=== PATIENT | female | born 1950 | race Caucasian/White ===

== ENCOUNTER 2017-04-19 08:00 | Inpatient (IN) | payer MEDICARE ==
[~2017-04-19] VITALS: Ht 157.5 cm; Wt 105.0 kg
[~2017-04-19 08:00] MED LIST: LEVO.075 PO; LISI-360 PO; OXYC1SOL5 PO
--- NOTE | 2017-04-22 14:47 | MH ---
cc: Juliann DIXON M.D. DATE OF ADMISSION: 04/26/2017 ADMISSION DIAGNOSIS Osteoarthritic degeneration of the right knee. ADMISSION HISTORY AND PHYSICAL This pleasant 66-year-old female is being admitted today for right total knee arthroplasty due to severe painful osteoarthritic degeneration of the right knee. OTHER PAST HISTORY She has had a left total knee in the past. She has a history of hypertension for which she takes lisinopril and for her thyroid problem she takes levothyroxine. She also takes Gertrudis and Omeprazole for GERD. PREVIOUS SURGERIES Include the left total knee arthroplasty. REVIEW OF SYSTEMS Noncontributory. FAMILY HISTORY Noncontributory. SOCIAL HISTORY She does not smoke or drink. ALLERGIES PENICILLIN. PHYSICAL EXAMINATION GENERAL: We find a 66-year-old female, well-developed, well-nourished, oriented x3, complaining of pain in her right knee. VITAL SIGNS: Blood pressure 116/80, pulse 67 and regular, respirations 16, temperature 97.8, pulse oximetry 97% on room air. HEENT: Eyes PERRLA, EOMI. Ears, nose, mouth clear. NECK: Supple. LUNGS: Clear. HEART: Regular rate. ABDOMEN: Soft. Positive bowel sounds, nontender. EXTREMITIES: Reveal right knee to be tender with crepitance on range of motion. She is neurovascularly intact to her toes. IMPRESSION AT THIS TIME Severe painful osteoarthritic degeneration, right knee. PLAN Admission for right total knee arthroplasty today. The patient given a prescription for postoperative pain and anticoagulation control in the office, understands the use of Hibiclens scrub and Bactroban preoperatively and plans on going to a rehab center after her surgical stay in the hospital. MD LIBBY Franco/SABA /2:12 PM /2:25 PM
[2017-04-26] MEDS ORDERED: CHLORHEXIDINE GLUCONATE 4% SOLN 120 ML BTL TOPICAL SCH (06:30)
[2017-04-26] MEDS ORDERED: SODIUM CHLORID 0.9% 500 ML IV PRN (06:30)
[2017-04-26] MEDS ORDERED: POVIDONE IODINE 5% (ANTISEPSIS KIT) 4 APPLICATIONS EACH NARE PRN (06:30)
[2017-04-26] MEDS ORDERED: VANCOMYCIN 1000 MG/NS 250 ML (for <70 kg) IV SCH ×2 (06:30)
[2017-04-26] MEDS ORDERED: CHLORHEXIDINE GLUCONATE 2 % 1 PACK (2 CLOTHS) TOPICAL PRN (06:30)
[2017-04-26] MEDS ORDERED: DEXAMETHASONE SOD PHOS 20 MG/5 ML VIAL IV ONE (06:30)
[2017-04-26] MEDS ORDERED: LACTATED RINGER'S 1000 ML IV PRN (06:30)
[2017-04-26] MEDS ORDERED: INSULIN HUMAN REGULAR 1,000 UNITS/10 ML VIAL SQ PRN (06:30)
[2017-04-26] MEDS ORDERED: CLINDAMYCIN 900 MG/NS 100 ML IV SCH ×2 (06:30)
[2017-04-26] MEDS ORDERED: METOPROLOL TARTRATE 25 MG TAB PO PRN (06:30)
[2017-04-26] MEDS ORDERED: CHOL20005 PO (06:44)
[2017-04-26] MEDS ORDERED: OMEP20TA PO (06:44)
[2017-04-26] MEDS ORDERED: LEVO.075 PO (06:44)
[2017-04-26] MEDS ORDERED: FEXO15TA PO (06:44)
[2017-04-26] MEDS ORDERED: LISI10TA3 PO (06:44)
[2017-04-26] MEDS ORDERED: GENTAMICIN SULFATE 80 MG/2 ML VIAL ONE (06:54)
[2017-04-26 07:04] LABS: AUTOMATED NEUTROPHIL # 6.2 TH/MM3 (1.8-7.7); BASOPHIL # 0.1 TH/MM3 (0-0.2); BASOPHIL % 0.7 % (0.0-2.0); EOSINOPHIL # 0.3 TH/MM3 (0-0.4); EOSINOPHIL % 2.9 % (0.0-4.0); HEMATOCRIT 43.3 % (35.0-46.0); HEMO FLAGS DIFF FINAL; LYMPH % 26.7 % (9.0-44.0); LYMPHOCYTE # 2.6 TH/MM3 (1.0-4.8); MEAN CELL VOLUME 86.4 FL (80.0-100.0); MEAN CORPUSCULAR HEMOGLOBIN 28.8 PG (27.0-34.0); MEAN CORPUSCULAR HGB CONC 33.3 % (32.0-36.0); MONO % 6.6 % (0.0-8.0); NEUT % 63.1 % (16.0-70.0); PLATELET COUNT 299 TH/MM3 (150-450); RED BLOOD COUNT 5.01 MIL/MM3 (4.00-5.30); RED CELL DISTRIBUTION WIDTH 13.2 % (11.6-17.2); WHITE BLOOD COUNT 9.9 TH/MM3 (4.0-11.0)
[2017-04-26] MEDS ORDERED: ACETAMINOPHEN 1000 MG/100 ML 100 ML IV ONE (07:38)
[2017-04-26] MEDS ORDERED: FAMOTIDINE 20 MG/2 ML VIAL ONE (07:39)
[2017-04-26] MEDS ORDERED: BUPIVACAINE LIPOSO PF 1.3% INJ 20 ML in SODIUM CHLORIDE 0.9% INJ 100 ML P-ARTICULR SCH (08:00)
[2017-04-26] MEDS ORDERED: TRANEXAMIC ACID INJ 1,056 MG in SODIUM CHLORIDE 0.9% INJ 100 ML IV SCH ×3 (08:00→11:00)
[2017-04-26] MEDS ORDERED: diphenhydrAMINE HCL 50 MG/ML VIAL IV PRN (10:15)
[2017-04-26] MEDS ORDERED: SODIUM CHLORIDE 0.9% FLUSH 5 ML FLUSH IVF PRN (10:15)
[2017-04-26] MEDS ORDERED: Post-op Orders (for Pharmacy) MISC XX ONE (10:15)
[2017-04-26] MEDS ORDERED: TEMAZEPAM 15 MG CAP PO PRN (10:15)
[2017-04-26] MEDS ORDERED: TRANEXAMIC ACID INJ 0 MG in SODIUM CHLORIDE 0.9% INJ 100 ML IV SCH (10:15)
[2017-04-26] MEDS ORDERED: NALOXONE HCL 0.4 MG/ML AMP IV PRN (10:15)
[2017-04-26] MEDS ORDERED: ACETAMINOPHEN 325 MG TAB PO PRN (10:15)
--- NOTE | 2017-04-26 10:15 | HHI.FF ---
Face to Face Verification Diagnosis: (1) Status post total right knee replacement Physical Therapy Gait training Knee: Protocol: Right, Full weight bearing Canvas Knee Splint: When in bed & 2 pillows btw thighs Nursing RN: 3 days/week x 2 weeks Nursing: Dressing changes Dressing Changes: Daily dressing change, Paper tape I have seen patient Krissy Leal on 04/26/17. My clinical findings support the need for the requested home health care services because: Limited ability to care for self High risk of falls I certify that my clinical findings support that this patient is homebound because: Unsteady gait/balance Juliann Joel MD Apr 26, 2017 10:15
[2017-04-26] MEDS ORDERED: ADJUSTABLE COMM1 MIS (10:17)
[2017-04-26] MEDS ORDERED: CPMMACHINE (10:17)
[2017-04-26] MEDS ORDERED: WALKER WHEELS/F1 MIS (10:17)
[2017-04-26] MEDS ORDERED: DO NOT ADM ANY ANTICOAGULANT DRUGS PRN (10:28)
--- NOTE | 2017-04-26 10:40 | HHI.PR ---
Immediate Post Op Note Procedure Date: Apr 26, 2017 Pre Op Diagnosis: severe painful Osteoarthritic degeneration of the right knee. Post Op Diagnosis: Osteoarthritic degeneration of the right knee. Surgeon: Beau Joel MD Cuff Turner Machine Operator(s): Jerrica LOPEZ Procedure: Right total knee arthroplasty Findings: Osteoarthritic degeneration of the right knee. Complications: none Specimen(s) removed: none Estimated blood loss: 100 cc Anesthesia: General Drains: None IVF Tourniquet time (min at mmHg) 86 mins at 300mgHg Patient to: PACU Patient Condition: Good Implant/Devices: SEE IMPLANT LOG (if applicable) Date/Time of Procedure: SEE SURGICAL CARE RECORD Jerrica Martinez Apr 26, 2017 10:40
[2017-04-26] MEDS ORDERED: *morphine SULFATE 8 MG/ML PERIprocedure ONLY ONE ×2 (10:53→11:08)
[2017-04-26] MEDS: LACTATED RINGER'S 1000 ML INJ 1,000 ML IV SCH ×2 (11:00→22:39)
--- NOTE | 2017-04-26 11:32 | RADRPT ---
EXAM DATE/TIME: 04/26/2017 10:35 [facility] COMPARISON: No previous studies available for comparison. INDICATIONS : Post op right total knee. MEDICAL HISTORY : None. SURGICAL HISTORY : None. ENCOUNTER: Initial ACUITY: 1 day PAIN SCORE: 5/10 LOCATION: Right Knee FINDINGS: Two view examination of the right knee demonstrates total knee arthroplasty. All 3 components are pro perly positioned. No fracture. CONCLUSION: Appropriate postoperative appearance of the right knee status post total arthroplasty. Willard Howell MD on April 26, 2017 at 11:24 Board Certified Radiologist. This report was verified electronically.
--- NOTE | 2017-04-26 11:54 | EKG ---
Date Performed: 04/26/2017 Time Performed: 06:43:16 PTAGE: 66 years EKG: Sinus rhythm LEFT AXIS DEVIATION POSSIBLE LATERAL MYOCARDIAL INFARCTION , PROBABLY OLD POOR R WAVE PROGRESSION AB NORMAL ECG PREVIOUS TRACING : 04/11/2015 11.48 No significant change from previous tracing noted DOCTOR: True Monsalve Interpretating Date/Time 04/26/2017 11:53:14
[2017-04-26] MEDS ORDERED: ePHEDrine/NS 25 MG/5 ML SYR IV ONE (12:00)
[2017-04-26] MEDS ORDERED: MORPHINE SULFATE 4 MG/ML INJ IV ONE (12:00)
[2017-04-26] MEDS ORDERED: CLINDAMYCIN 150 MG CAP PO SCH (12:00)
[2017-04-26] MEDS ORDERED: DEXAMETHASONE SOD PHOS 4 MG/ML VIAL IV ONE (12:00)
[2017-04-26] MEDS ORDERED: VECURONIUM BROMIDE 20 MG VIAL IV ONE (12:00)
[2017-04-26] MEDS ORDERED: LACTATED RINGER'S 1000 ML INJ 2,000 ML IV ONE (12:00)
[2017-04-26] MEDS: CLINDAMYCIN INJ 900 MG in SODIUM CHLORIDE 0.9% INJ 100 ML IV SCH ×2 (12:00→20:19)
[2017-04-26] MEDS ORDERED: PROPOFOL 200 MG/20 ML AMP IV ONE (12:00)
[2017-04-26] MEDS ORDERED: MIDAZOLAM HCL 2 MG/2 ML VIAL IV ONE (12:00)
[2017-04-26] MEDS ORDERED: ONDANSETRON HCL 4 MG/2 ML VIAL IV PUSH ONE (12:00)
[2017-04-26] MEDS ORDERED: PHENYLEPH/NS 1000 MCG/10 ML SYR IV ONE (12:00)
[2017-04-26] MEDS ORDERED: NEOSTIGMINE 3 MG/3 ML SYR IV ONE (12:00)
[2017-04-26] MEDS ORDERED: ceFAZolin INJ 1,000 MG VIAL IV ONE (12:00)
[2017-04-26] MEDS ORDERED: BUPIVACAINE LIPOSOME PF 1.3% 20 ML VIAL ONE (12:02)
[2017-04-26] MEDS: MORPHINE SULFATE 4 MG/ML INJ IV PRN ×3 (16:47→23:29)
[2017-04-26 17:00] VITALS: BP 120/72; PULSE 82; RESP 16; TEMP 97; O2SAT 94
--- NOTE | 2017-04-26 18:13 | PD.CONS ---
HPI Service [facility] Hospitalists Consult Requested By ortho Reason for Consult medical management Primary Care Physician Prabhakar Crandall M.D. Diagnoses: History of Present Illness 66 years old female with history of chronic right knee osteoarthritis severe pain admitted for right total knee arthroplasty, hospitalist service consulted to see patient for medical management, patient seen and examined in her room she was awake alert oriented, pleasant, in no acute distress, right lower extremity in mobilizer, patient stated she had a history of hypertension and hypothyroidism, she had hysterectomy in the past and left total knee arthroplasty. Currently she denied any chest pain short of breath fever chills abdominal pain dysuria urgency frequency Review of Systems All systems reviewed and was positive for what is mentioned in history of present illness otherwise negative Past Family Social History Allergies: Coded Allergies: penicillin G (Unverified Allergy, Severe, joint pain, 04/26/17) joint pain Past Medical History Hypertension, hypothyroidism, Past Surgical History Hysterectomy Family History Father had diabetes mellitus Social History Denied tobacco alcohol or illicit drug abuse Physical Exam Vital Signs Vital Signs Date Time Temp Pulse Resp B/P (MAP) Pulse Ox O2 Delivery O2 Flow Rate FiO2 04/26/17 17:00 97.5 77 16 125/77 (93) 95 Room Air 04/26/17 16:52 15 04/26/17 16:00 78 16 120/70 (87) 94 Room Air 04/26/17 15:00 79 16 118/69 (85) 93 Room Air 04/26/17 14:00 80 16 116/68 (84) 92 Room Air 04/26/17 13:00 82 16 119/67 (84) 98 Nasal Cannula 3 04/26/17 12:00 88 15 121/69 (86) 97 Nasal Cannula 3 04/26/17 11:30 97.7 84 15 134/70 (91) 95 Nasal Cannula 3 04/26/17 11:15 86 15 131/68 (89) 94 Nasal Cannula 3 04/26/17 11:13 15 04/26/17 11:00 87 15 128/69 (88) 94 Nasal Cannula 3 04/26/17 10:58 15 04/26/17 10:45 86 14 133/67 (89) 93 Nasal Cannula 3 04/26/17 10:30 90 14 130/70 (90) 98 Simple Mask 7 04/26/17 10:25 97.8 89 10 139/72 (94) 97 Simple Mask 7 04/26/17 06:45 97.8 89 16 134/84 (101) 96 Physical Exam GENERAL: This is a well-nourished, well-developed patient, in no apparent distress. SKIN: No rashes, warm and dry HEAD: Atraumatic. Normocephalic. EYES: Pupils equal round and reactive. Extraocular motions intact. No scleral icterus. ENT: Nose without bleeding, or drainage, Airway patent. NECK: Trachea midline. Supple CARDIOVASCULAR: Regular rate and rhythm without murmurs, gallops, or rubs. RESPIRATORY: Fair air entry bilaterally. No wheezes, rales, or rhonchi. GASTROINTESTINAL: Abdomen soft, non-tender, nondistended. Positive bowel sounds MUSCULOSKELETAL: Extremities without clubbing, cyanosis, or edema. Pedal pulses appreciated, right lower extremity immobilizer able to wiggle toes NEUROLOGICAL: Awake and alert. Moves all extremity. Normal speech.no focal neurological deficit Laboratory Laboratory Tests Test 04/26/17 06:50 White Blood Count 9.9 Red Blood Count 5.01 Hemoglobin 14.4 Hematocrit 43.3 Mean Corpuscular Volume 86.4 Mean Corpuscular Hemoglobin 28.8 Mean Corpuscular Hemoglobin Concent 33.3 Red Cell Distribution Width 13.2 Platelet Count 299 Mean Platelet Volume 8.3 Neutrophils (%) (Auto) 63.1 Lymphocytes (%) (Auto) 26.7 Monocytes (%) (Auto) 6.6 Eosinophils (%) (Auto) 2.9 Basophils (%) (Auto) 0.7 Neutrophils # (Auto) 6.2 Lymphocytes # (Auto) 2.6 Monocytes # (Auto) 0.6 Eosinophils # (Auto) 0.3 Basophils # (Auto) 0.1 CBC Comment DIFF FINAL Differential Comment Result Diagram: 04/26/17 0650 Imaging Last Impressions Knee X-Ray 04/26/17 1009 Signed Impressions: Service Date/Time: Wednesday, April 26, 2017 10:35 - CONCLUSION: Appropriate postoperative appearance of the right knee status post total arthroplasty. Willard Howell MD Assessment and Plan Assessment and Plan 66 years old female admitted for Severe right knee osteoarthritis status us right total knee arthroplasty Hypertension Hypothyroidism DVT prophylaxis Plan and recommendation: Check BMP and renal function Agree with continuing lisinopril, I will add Vasotec as needed after assuring good renal function Agree with continuing Synthroid, TSH to be checked and followed up as an outpatient Patient will start on Eliquis for DVT prophylaxis per ortho Pain management with [place] and morphine sulfate Will follow patient with you thank you for this consultation Discussed Condition With Patient Bert Meeks MD Apr 26, 2017 18:13
[2017-04-26] MEDS: ONDANSETRON HCL 4 MG/2 ML VIAL IVP PRN (20:18)
[2017-04-26] MEDS: SODIUM CHLORIDE 0.9% FLUSH 5 ML FLUSH IVF SCH (20:32)
[2017-04-26 20:57] VITALS: BP 102/72; PULSE 82; RESP 18; TEMP 96.7; O2SAT 93
[2017-04-26 23:15] VITALS: BP 106/83; PULSE 83; RESP 18; TEMP 96.7; O2SAT 93
[2017-04-27] VITALS (7 sets, daily range): BP systolic 96–141; BP diastolic 57–89; PULSE 95–104; RESP 16–18; TEMP 97.2–98.7; O2SAT 92–97
[2017-04-27] MEDS: CLINDAMYCIN INJ 900 MG in SODIUM CHLORIDE 0.9% INJ 100 ML IV SCH (04:32)
[2017-04-27] MEDS: MORPHINE SULFATE 4 MG/ML INJ IV PRN ×2 (04:37→10:03)
[2017-04-27] MEDS: ONDANSETRON HCL 4 MG/2 ML VIAL IVP PRN ×3 (05:12→20:19)
[2017-04-27] MEDS: LEVOTHYROXINE SODIUM 75 MCG TAB PO SCH (06:27)
[2017-04-27 08:35] LABS: HEMATOCRIT 41.6 % (35.0-46.0); REVIEW FLAG FINAL
[2017-04-27] MEDS: CHOLECALCIFEROL (VIT D3) 1000 UNIT TAB PO SCH (09:00)
[2017-04-27] MEDS: LISINOPRIL 10 MG TAB PO SCH (09:00)
[2017-04-27] MEDS: PANTOPRAZOLE SOD 20 MG DELAYED RELEASE TAB PO SCH (09:00)
[2017-04-27] MEDS: LORATADINE 10 MG TAB PO SCH (09:00)
[2017-04-27] MEDS: SODIUM CHLORIDE 0.9% FLUSH 5 ML FLUSH IVF SCH ×2 (09:00→20:19)
[2017-04-27 09:05] LABS: BICARBONATE 21.5 MEQ/L (21.0-32.0)
[2017-04-27 09:13] LABS: POTASSIUM 4.7 MEQ/L (3.5-5.1)
[2017-04-27] MEDS ORDERED: APIXABAN 2.5 MG TABLET PO SCH (10:00)
--- NOTE | 2017-04-27 11:31 | PD.ORT.PN ---
Subjective Subjective Remarks Pt painful and nauseous at moment. Objective Vitals Vital Signs Date Time Temp Pulse Resp B/P (MAP) Pulse Ox O2 Delivery O2 Flow Rate FiO2 04/27/17 08:50 21 04/27/17 08:00 98.7 99 16 140/82 (101) 94 04/27/17 05:00 97.8 100 18 96/57 (70) 93 04/27/17 04:42 18 04/26/17 23:15 96.7 83 18 106/83 (91) 93 04/26/17 20:57 96.7 82 18 102/72 (82) 93 04/26/17 20:40 21 04/26/17 17:00 97.0 82 16 120/72 (88) 94 04/26/17 17:00 97.5 77 16 125/77 (93) 95 Room Air 04/26/17 16:00 78 16 120/70 (87) 94 Room Air 04/26/17 15:00 79 16 118/69 (85) 93 Room Air 04/26/17 14:00 80 16 116/68 (84) 92 Room Air 04/26/17 13:00 82 16 119/67 (84) 98 Nasal Cannula 3 04/26/17 12:00 88 15 121/69 (86) 97 Nasal Cannula 3 04/26/17 11:30 97.7 84 15 134/70 (91) 95 Nasal Cannula 3 I/O 04/26/17 04/26/17 04/26/17 04/27/17 04/27/17 04/27/17 07:00 15:00 23:00 07:00 15:00 23:00 Intake Total 1316.56 ml 810 ml 360 ml Output Total 3100 ml Balance -1783.44 ml 810 ml 360 ml Intake Oral 360 ml 360 ml IV Total 1316.56 ml 450 ml Output Estimated Blood Loss 100 ml Other 3000 ml # Voids 2 4 # Bowel Movements 0 0 Result Diagram: 04/27/1751904/27/17 05 Objective Remarks Sitting up in chair. NV intact. Dressing dry and intact. Assessment & Plan Ortho Post Op Day #: 1 Problem List: Assessment and Plan OOB, PT, Lovenox instead of Eliquis today. Juliann Joel MD Apr 27, 2017 11:31
[2017-04-27] MEDS ORDERED: ENOXAPARIN SODIUM 30 MG/0.3 ML SYRINGE SQ ONE ×2 (13:30→23:00)
[2017-04-27] MEDS: ENOXAPARIN SODIUM 30 MG/0.3 ML SYRINGE SQ SCH (13:38)
--- NOTE | 2017-04-27 15:47 | HHI.PR ---
Objective Vitals Vital Signs Date Time Temp Pulse Resp B/P (MAP) Pulse Ox O2 Delivery O2 Flow Rate FiO2 04/27/17 12:00 97.2 95 16 141/89 (106) 94 04/27/17 08:50 21 04/27/17 08:00 98.7 99 16 140/82 (101) 94 04/27/17 05:00 97.8 100 18 96/57 (70) 93 04/27/17 04:42 18 04/26/17 23:15 96.7 83 18 106/83 (91) 93 04/26/17 20:57 96.7 82 18 102/72 (82) 93 04/26/17 20:40 21 04/26/17 17:00 97.0 82 16 120/72 (88) 94 04/26/17 17:00 97.5 77 16 125/77 (93) 95 Room Air 04/26/17 16:00 78 16 120/70 (87) 94 Room Air I/O 04/26/17 04/26/17 04/26/17 04/27/17 04/27/17 04/27/17 07:00 15:00 23:00 07:00 15:00 23:00 Intake Total 1316.56 ml 810 ml 360 ml Output Total 3100 ml Balance -1783.44 ml 810 ml 360 ml Intake Oral 360 ml 360 ml IV Total 1316.56 ml 450 ml Output Estimated Blood Loss 100 ml Other 3000 ml # Voids 2 4 # Bowel Movements 0 0 Result Diagram: 04/27/17 0520 04/27/17 0520 Bert Meeks MD Apr 27, 2017 15:47
[2017-04-27] MEDS: ACETAMINOPHEN/HYDROcodone 325 MG/7.5 MG TAB PO PRN ×2 (15:56→20:11)
[2017-04-27] MEDS: MULTIVITAMINS/MINERALS THERAPEUTIC TAB PO SCH (20:10)
[2017-04-27] MEDS: DOCUSATE SODIUM 100 MG CAP PO SCH (20:10)
--- NOTE | 2017-04-27 20:34 | HHI.PR ---
Subjective Remarks Resting comfortably in bed No event overnight Denied chest and or short of breath No fever or chills Objective Vitals Vital Signs Date Time Temp Pulse Resp B/P (MAP) Pulse Ox O2 Delivery O2 Flow Rate FiO2 04/27/17 20:32 92 04/27/17 19:49 98.6 104 18 124/72 (89) 97 04/27/17 16:00 97.8 96 16 133/86 (102) 95 04/27/17 12:00 97.2 95 16 141/89 (106) 94 04/27/17 08:50 21 04/27/17 08:00 98.7 99 16 140/82 (101) 94 04/27/17 05:00 97.8 100 18 96/57 (70) 93 04/27/17 04:42 18 04/26/17 23:15 96.7 83 18 106/83 (91) 93 04/26/17 20:57 96.7 82 18 102/72 (82) 93 04/26/17 20:40 21 I/O 04/26/17 04/26/17 04/26/17 04/27/17 04/27/17 04/27/17 07:00 15:00 23:00 07:00 15:00 23:00 Intake Total 1316.56 ml 810 ml 360 ml 600 ml Output Total 3100 ml Balance -1783.44 ml 810 ml 360 ml 600 ml Intake Oral 360 ml 360 ml 600 ml IV Total 1316.56 ml 450 ml Output Estimated Blood Loss 100 ml Other 3000 ml # Voids 2 4 4 # Bowel Movements 0 0 0 Result Diagram: 04/27/1751904/27/17519 Objective Remarks GENERAL: This is a well-nourished, well-developed patient, in no apparent distress. SKIN: No rashes, warm and dry HEAD: Atraumatic. Normocephalic. EYES: Pupils equal round and reactive. Extraocular motions intact. No scleral icterus. ENT: Nose without bleeding, or drainage, Airway patent. NECK: Trachea midline. Supple CARDIOVASCULAR: Regular rate and rhythm without murmurs, gallops, or rubs. RESPIRATORY: Fair air entry bilaterally. No wheezes, rales, or rhonchi. GASTROINTESTINAL: Abdomen soft, non-tender, nondistended. Positive bowel sounds MUSCULOSKELETAL: Extremities without clubbing, cyanosis, or edema. Pedal pulses appreciated, right lower extremity immobilizer able to wiggle toes NEUROLOGICAL: Awake and alert. Moves all extremity. Normal speech.no focal neurological deficit A/P Assessment and Plan 66 years old female admitted for Severe right knee osteoarthritis status us right total knee arthroplasty Hypertension Hypothyroidism DVT prophylaxis Plan and recommendation: Review BMP and renal function>> WNL Continue lisinopril, I will add Vasotec as needed after assuring good renal function Continue Synthroid, TSH to be checked and followed up as an outpatient Patient on Eliquis for DVT prophylaxis per ortho Pain management with [place] and morphine sulfate Bert Meeks MD Apr 27, 2017 20:34
--- NOTE | 2017-04-27 21:45 | MP ---
cc: Juliann JOEL DATE OF SURGERY 04/26/17 PREOPERATIVE DIAGNOSIS Osteoarthritic degeneration right knee. POSTOPERATIVE DIAGNOSIS Osteoarthritic degeneration right knee. SURGERY PERFORMED Right total knee arthroplasty using Consensus components size 3 femur, 1 tibia and 12 insert and a size 1 patella two batches of DePuy cement and using the Bespoke protocol. SURGEON Dr. Joel KEY ATTENDANT JOHN Yeh ANESTHESIA General intubation and abductor block. PROCEDURE FOLLOWS After successful induction of anesthesia, the patient is placed on the operating room table in the supine position. The knee is prepped and draped in the usual manner. A tourniquet is inflated at the upper thigh and set to 300 mmHg pressure after exsanguination of the lower extremity. A longitudinal incision is made extending from 3 inches proximal to the superior pole of the patella, across the patella in longitudinal fashion, and down past the insertion of the tibial tubercle into the proximal tibia. The incision is carried down through subcutaneous tissue along the medial aspect of the patella and retinaculum, down through the capsule to expose the knee joint. The patella and patellar tendon are freed up enough to allow the patella to be inverted and retracted off the lateral side of the knee joint. The knee joint is left exposed. Small osteophytes are removed. All soft tissue is removed to allow proper position of the femoral and tibial cutting jig guide. The first femoral jig is then inserted along the distal end of the femur after first measuring to decide whether this is a small, medium, or large component. The notch is then drilled and the tibial cutting guide inserted into the femoral cutting guide, along with the ankle brace to allow for proper measurement of the tibial cutting surface that needed to be resected. Pins are inserted into the tibial cutting jig and femoral cutting jig to hold them in place. An oscillating saw is then used to resect the surface of the tibia. The surface of the tibia is then completely removed using sharp and blunt dissection. The anterior and posterior cuts of the femur are then made as well using an oscillating saw through the cutting guide. All guides are then removed and the varus/valgus angulation cutting guide applied to the femur for proper measurement of the proper amount of valgus. The anterior cutting guide for the femur is then inserted at the anterior femoral cuts made. Next, the first block trial is inserted into the femur to allow for proper condyle drill holes to be made which are then made followed by removal of the bone between the condyles using an oscillating saw as well as the bone removed at the most posterior surface of the condyle. After this, this guide is removed and the chamfer cuts made using the chamfer cutting guide from both anterior and posterior. Next, the femoral trial is then inserted, the tibial surface reflected anterior to expose the tibial surface and a tibial stem guide is inserted after first measuring for a standard, standard plus, large, or large plus surface to be used. After the stem is impacted the trial tibial surface is applied followed by the trial meniscal components. After full range of motion is found with the appropriate length meniscal components varying the patella is prepared by resecting the posterior aspect of the patella using an oscillating saw, inserting a trial. The trial is then removed and the cruciate cutting guide applied using the bur to cut the cruciate cuts. After cruciate cuts are made all trials are removed. The wound is irrigated copiously with antibiotic solution and Water Pik and the actual components inserted into place using aforementioned components using Bespoke protocol. After the cement has hardened and the components are found to have full range of motion with no instability, the tourniquet is deflated, total tourniquet time being 45 minutes at 300 mmHg pressure. The wound again is irrigated copiously with antibiotic solution, meticulous hemostasis achieved. Meticulous hemostasis achieved, 120 cc of Exparel inserted around the knee joint for extra pain control. No drain utilized. The deep fascia was approximated with running #2 quill, subcutaneous tissue approximated using interrupted running 2-0 and 3-0 Monocryl suture and Steri-Strips, sterile dressing and knee immobilizer. Estimated blood loss 100 cc. Sponge, suture count correct. The patient tolerated the procedure well and left the operating room in satisfactory condition. JOHN Yeh, was present during the entire procedure to include patient positioning and the procedure. The medical necessity of a nurse practitioner store assistant was indicated in this case due to the surgical complexity the case itself. During the surgical case the rn surgical who was working the back table while my surgical training specialist, JOHN, was directly assisting me. ESTIMATED BLOOD LOSS: 100 cc. COUNTS: Sponge and suture counts were correct. COMPONENTS: The components used were Consensus components size 3 femur, 1 tibia and 12 insert and a size 1 patella two batches of DePuy cement and using the Bespoke protocol. J. MD LIBBY Huston/KIRILL /10:04 AM /9:12 PM
[2017-04-27] MEDS: LACTATED RINGER'S 1000 ML INJ 1,000 ML IV SCH (23:39)
[2017-04-28] MEDS: ACETAMINOPHEN/HYDROcodone 325 MG/7.5 MG TAB PO PRN ×6 (01:23→22:47)
[2017-04-28] MEDS: ENOXAPARIN SODIUM 30 MG/0.3 ML SYRINGE SQ SCH (01:27)
[2017-04-28] MEDS: ONDANSETRON HCL 4 MG/2 ML VIAL IVP PRN ×2 (02:52→10:34)
[2017-04-28 04:14] VITALS: BP 123/77; PULSE 104; RESP 18; TEMP 98.4; O2SAT 95
[2017-04-28] MEDS: LEVOTHYROXINE SODIUM 75 MCG TAB PO SCH (05:56)
[2017-04-28 06:57] LABS: HEMATOCRIT 37.2 % (35.0-46.0); REVIEW FLAG FINAL
[2017-04-28 08:00] VITALS: BP 147/82; PULSE 109; RESP 18; TEMP 96; O2SAT 95
[2017-04-28] MEDS: LISINOPRIL 10 MG TAB PO SCH (09:00)
[2017-04-28] MEDS: SODIUM CHLORIDE 0.9% FLUSH 5 ML FLUSH IVF SCH ×2 (09:00→20:40)
[2017-04-28] MEDS: CHOLECALCIFEROL (VIT D3) 1000 UNIT TAB PO SCH (10:12)
[2017-04-28] MEDS: MULTIVITAMINS/MINERALS THERAPEUTIC TAB PO SCH ×2 (10:13→20:40)
[2017-04-28] MEDS: DOCUSATE SODIUM 100 MG CAP PO SCH ×2 (10:13→20:40)
[2017-04-28] MEDS: LORATADINE 10 MG TAB PO SCH (10:13)
[2017-04-28] MEDS: APIXABAN 2.5 MG TABLET PO SCH ×2 (10:13→20:40)
[2017-04-28] MEDS: PANTOPRAZOLE SOD 20 MG DELAYED RELEASE TAB PO SCH (10:14)
[2017-04-28] MEDS ORDERED: BACITRACIN OINT 0.9 GM PKT TOP PRN (10:15)
[2017-04-28 12:00] VITALS: BP_SYST 123; BP_SYST 142; BP_DIAS 69; BP_DIAS 76; PULSE 108; RESP 18; TEMP 96; TEMP 98.8; O2SAT 94; O2SAT 97
[2017-04-28] MEDS: POLYETHYLENE GLYCOL 17 GM PKG PO SCH ×2 (14:11→20:40)
--- NOTE | 2017-04-28 14:59 | PD.ORT.PN ---
Subjective Subjective Remarks Patient much more comfortable today with no nausea. Objective Vitals Vital Signs Date Time Temp Pulse Resp B/P (MAP) Pulse Ox O2 Delivery O2 Flow Rate FiO2 04/28/17 08:00 96.0 109 18 147/82 (103) 95 04/28/17 04:14 98.4 104 18 123/77 (92) 95 04/27/17 23:00 97.5 100 18 138/75 (96) 95 04/27/17 20:32 92 04/27/17 19:49 98.6 104 18 124/72 (89) 97 04/27/17 16:00 97.8 96 16 133/86 (102) 95 I/O 04/27/17 04/27/17 04/27/17 04/28/17 04/28/17 04/28/17 07:00 15:00 23:00 07:00 15:00 23:00 Intake Total 360 ml 600 ml 360 ml 480 ml Balance 360 ml 600 ml 360 ml 480 ml Intake Oral 360 ml 600 ml 360 ml 480 ml # Voids 4 4 5 8 # Bowel Movements 0 0 0 0 Result Diagram: 04/28/17 0555 04/27/17 0520 Objective Remarks Sitting up in chair. NV intact. Dressing dry and intact. Assessment & Plan Ortho Post Op Day #: 2 Problem List: Assessment and Plan Continue PT, daily wound care, out of bed, [facility] facility tomorrow. Juliann Joel MD Apr 28, 2017 14:59
[2017-04-28] MEDS ORDERED: HYDR-3580 PO (15:03)
--- NOTE | 2017-04-28 15:05 | HHI.DS ---
Discharge Summary Admission Date Apr 26, 2017 at 05:58 Discharge Date: Apr 29, 2017 Admitting Diagnosis Osteoarthritic degeneration right knee Diagnosis: (1) Status post total right knee replacement ICD Codes: Z96.651 - Presence of right artificial knee joint Brief History This is a 67 year old female patient CBC/BMP: 04/28/17 0555 04/27/17 0520 Significant Findings Laboratory Tests Test 04/26/17 06:50 04/27/17 05:20 04/28/17 05:55 Sodium Level 134 MEQ/L (136-145) Estimat Glomerular Filtration Rate 78 ML/MIN (>89) PE at Discharge Sitting up in chair. NV intact. Dressing dry and intact. Hospital Course Patient underwent a right total knee arthroplasty on day of admission. She received a course of prophylactic IV antibiotics and within 23 hours started on anticoagulation therapy. She had a bout of nausea the first day but was fine the second day. She tolerated food and fluid well thereafter remained afebrile vital signs stable and continued with physical therapy and daily wound care. She continued to improve and was discharged on the third postoperative day [facility] with instructions for continuation of care and follow-up appointment in the office. Pt Condition on Discharge: Good Discharge Disposition: Discharge to SNF Discharge Instructions Diet Instructions: As Tolerated, No Restrictions Activities You Can Perform: Weight Bearing as Yesi, Shower Only-No Bath Activities to Avoid: Bathing, Driving Juliann Joel MD Apr 28, 2017 15:05
[2017-04-28 16:00] VITALS: BP 117/78; PULSE 107; RESP 16; TEMP 97.4; O2SAT 98
[2017-04-28 19:00] VITALS: BP 140/80; PULSE 111; RESP 17; TEMP 95.9; O2SAT 95
[2017-04-29] VITALS: BP 108/69; PULSE 100; RESP 17; TEMP 97.3; O2SAT 93
[2017-04-29] MEDS: LACTATED RINGER'S 1000 ML INJ 1,000 ML IV SCH ×2 (00:39→13:09)
[2017-04-29] MEDS: ACETAMINOPHEN/HYDROcodone 325 MG/7.5 MG TAB PO PRN ×3 (04:19→14:09)
[2017-04-29] MEDS: LEVOTHYROXINE SODIUM 75 MCG TAB PO SCH (04:40)
[2017-04-29 08:00] VITALS: BP 110/74; PULSE 106; RESP 16; TEMP 97.4; O2SAT 92
[2017-04-29] MEDS: DOCUSATE SODIUM 100 MG CAP PO SCH (08:47)
[2017-04-29] MEDS: MULTIVITAMINS/MINERALS THERAPEUTIC TAB PO SCH (08:47)
[2017-04-29] MEDS: LISINOPRIL 10 MG TAB PO SCH (08:47)
[2017-04-29] MEDS: CHOLECALCIFEROL (VIT D3) 1000 UNIT TAB PO SCH (08:48)
[2017-04-29] MEDS: LORATADINE 10 MG TAB PO SCH (08:48)
[2017-04-29] MEDS: PANTOPRAZOLE SOD 20 MG DELAYED RELEASE TAB PO SCH (08:48)
[2017-04-29] MEDS: APIXABAN 2.5 MG TABLET PO SCH (08:48)
[2017-04-29] MEDS: SODIUM CHLORIDE 0.9% FLUSH 5 ML FLUSH IVF SCH (08:49)
[2017-04-29] MEDS ORDERED: APIX2.5T PO (09:47)
[2017-04-29 12:00] VITALS: BP 113/80; PULSE 96; RESP 16; TEMP 97; O2SAT 94
[2017-04-29] MEDS: POLYETHYLENE GLYCOL 17 GM PKG PO SCH (14:09)
== END 2017-04-29 18:04 | DRG 470 ==
LOC: HSDI 04-26 05:58 → N06A 04-26 17:22
PROVIDERS: ADMIT Surgery; ATTEND Surgery
PROC: 3E0T3CZ (ICD-10-PCS; 2017-04-26)
PROC: 0SRC0J9 Replacement of Right Knee Joint with Synthetic Substitute, Cemented, Open Approach (ICD-10-PCS; principal; 2017-04-26 07:43)
DX: M17.11 Unilateral primary osteoarthritis, right knee (principal); I10 Essential (primary) hypertension; E03.9 Hypothyroidism, unspecified; K21.9 Gastro-esophageal reflux disease without esophagitis; Z96.652 Presence of left artificial knee joint; Z90.710 Acquired absence of both cervix and uterus
CPT/HCPCS: 73560; 80048; 85014; 85018; 85025; 86850; 86900; 86901; 93005; 94150; C1776; C9290; J0131; J0690; J1100; J1580; J1650; J2250; J2270; J2370; J2405; J2710; J3010; J3370; J7050; J7120; L1830

== ENCOUNTER 2017-10-05 06:49 | Day surgery (SDC) | payer MEDICARE ==
[~2017-10-05] VITALS: Ht 157.5 cm; Wt 105.7 kg
[~2017-10-05 06:49] MED LIST changes: +ADJUSTABLE COMM1 MIS; +APIX2.5T PO; +CPMMACHINE; +D200CAP PO; +FEXO15TA PO; +HYDR-3580 PO; -LISI-360 PO; +LISI10TA3 PO; +OMEP20TA93 PO; -OXYC1SOL5 PO; +WALKER WHEELS/F1 MIS
[2017-10-05] MEDS ORDERED: IOHEXOL 350 MG/ML 50 ML BTL (for Cath Lab) OTHER ONE (06:50)
[2017-10-05] MEDS ORDERED: NS 1000P @30 MLS/HR (KVO) IV SCH (07:00)
[2017-10-05 07:29] VITALS: BP 141/94; PULSE 88; RESP 18; TEMP 97.7; O2SAT 95
[2017-10-05 07:44] LABS: BASOPHIL # 0.1 TH/MM3 (0-0.2); BASOPHIL % 0.7 % (0.0-2.0); EOSINOPHIL # 0.3 TH/MM3 (0-0.4); EOSINOPHIL % 3.1 % (0.0-4.0); HEMATOCRIT 42.9 % (35.0-46.0); HEMOGLOBIN 14.6 GM/DL (11.6-15.3); LYMPH % 28.6 % (9.0-44.0); LYMPHOCYTE # 2.8 TH/MM3 (1.0-4.8); MEAN CELL VOLUME 84.1 FL (80.0-100.0); MEAN CORPUSCULAR HEMOGLOBIN 28.7 PG (27.0-34.0); MEAN CORPUSCULAR HGB CONC 34.1 % (32.0-36.0); MEAN PLATELET VOLUME 8.3 FL (7.0-11.0); MONO % 5.7 % (0.0-8.0); MONOCYTE # 0.6 TH/MM3 (0-0.9); NEUT % 61.9 % (16.0-70.0); PLATELET COUNT 353 TH/MM3 (150-450); RED BLOOD COUNT 5.11 MIL/MM3 (4.00-5.30); RED CELL DISTRIBUTION WIDTH 13.6 % (11.6-17.2); WHITE BLOOD COUNT 9.7 TH/MM3 (4.0-11.0)
[2017-10-05] MEDS ORDERED: CHOL10008 PO (07:49)
[2017-10-05 07:55] LABS: INTERNATIONAL NORMALIZED RATIO 0.9 RATIO; PROTHROMBIN TIME - PATIENT 9.5 SEC (9.8-11.6)
[2017-10-05 08:00] LABS: BICARBONATE 27.5 MEQ/L (21.0-32.0); CALCIUM 9.3 MG/DL (8.5-10.1); CREATININE 0.76 MG/DL (0.50-1.00)
[2017-10-05] MEDS ORDERED: HEPARIN-NS/PF FLUSH BAG 2,000 ML IV FLUSH ONE (10:27)
[2017-10-05] MEDS ORDERED: HEPARIN SODIUM - IV 10,000 UNITS/10 ML VIAL ONE (10:28)
[2017-10-05] MEDS ORDERED: VERAPAMIL HCL 5 MG/2 ML VIAL ONE (10:28)
[2017-10-05] MEDS ORDERED: NITROGLYCERIN INJ 5 ML ONE (10:28)
[2017-10-05] MEDS ORDERED: MIDAZOLAM HCL 2 MG/2 ML VIAL ONE (10:28)
--- NOTE | 2017-10-05 11:20 | CATHPROC ---
[facility] HIS Report Study Information Study Number Admission Scheduled Start Study Start [id number] Oct 05 2017 6:49AM 10/05/2017 Oct 05 2017 10:22AM Abie Service Cardiac Catheterization Admit Source Facility Department Other [facility] - Photographic Laboratory Supervisor Physician and Clinical Staff Initial Javan Juárez Engineering Model Maker Dameon Owens RN Engineering Model Maker Lalito Barbour,MAT Recorder Negin Boo,RT(R) Scrub Winter Mendoza ,RT(R) Procedures Performed Procedure Location (Site) Vessel Name Coronary Angiograms LCA Left Coronary Coronary Angiograms RCA Right Coronary L Heart Cath Wire insertion Radial (right) Radial Art. Equipment Time Track Mechanic Description Size Mfg Part Number Used/Scraped TRANSDUCER, TRUWAVE [id number] 10:32 ROMERO DEE * Used W/STOCKCOCK *[id number] *[id number] 10:32 HemoSonics PACK, CCL CUSTOM * Used *[id number] 10:32 HemoSonics SUPPORT, ARTERIAL ADULT 32545 *[id number] Used [id number] 11:01 MEDTRONIC JL 3.5 DXTERITY CATHETER FR 5 Used *[id number] BAND, RADIAL COMPRESSION TR [id number] 11:06 Inspire MEDICAL 24CM Used SHORT 24 *[id number] 10:32 Inspire MEDICAL WIRE, EXCHANGE 260CM 3MMJ 260CM Used *[id number] 10:32 NAMIC MANIFOLD, 4 PORT * Used *[id number] 10:32 NYCOMED OMNIPAQUE, 350 MG, 150ML 150ML [id number] Used [id number] 10:32 OLGUIN MEDICAL BLANKET,WARM AIR CCL * Used *[id number] SHEATH, FR6 TRANSRADIAL [id number] 10:32 Ambow Education FR 6 Used SLENDER 10CM *[id number] History: Current Medications Medication Dosage/Unit Route Frequency Last Date/Time Taken LISINOPRIL Gertrudis Synthroid History: Allergies Allergy Reaction penicillin G joint pain History: Risk Factors Family History of Hypertension Dyslipidemia Previous MT Previous Heart Failure Premature CAD Yes Yes Yes No No Prior Valve Prior PCI Prior CABG Surgery No No No Cerebrovascular Peripheral Artery Chronic Lung On Dialysis Diabetes Disease Disease Disease No No No No No History: Symptoms/Diagnosis Selection Items SOB History: Stress Tests Stress or Imaging Studies Performed Yes Standard Exercise Stress Test No Stress Echo No Stress Test SPECT Stress Test SPECT Result Stress Test SPECT Ischemia Risk/Extent Yes Positive Intermediate Stress Test CMR No Cardiac CTA Coronary Calcium Score No No History: Other Disease Selection Items Gerd HTN History: Other Current Smoker No Labs Hgb (g/dl) Hct (%) WBC (l/cumm) Platelets (thousands) 11.60-17.00 35.00-51.00 4.00-11.00 150.00-450.00 14.6 42.9 9.7 353 Glucose (mg/dl) BUN (mg/dl) Creatinine (mg/dl) BUN:Creatinine (1:x) 74.00-106.00 7.00-18.00 0.50-1.30 10.00-20.00 96 21 0.7 30 Na (meq/l) K (meq/l) 136.00-145.00 3.50-5.10 139 3.9 INR (PTT:PT) 0.90-1.10 0.9 CPK-MB (ng/ML) 0.50-3.60 Not Drawn Medication Medication Total Dose (Bolus/Oral) Medication Total Dosage/Unit 1% XYLOCAINE 20 mL FENTANYL 25 mcg RADIAL COCKTAIL 5 mL (Bolus) VERSED 0.5 mg Medications (Bolus/Oral) Medication Time Given Dosage/Unit Administered By Reason VERSED 10/05/2017 10:50:10 AM 0.5 mg Dameon Owens 0.5 mg VERSED given in lab by Dameon Owens RN in Left Antecubital via Peripheral IV. Ordered by Javan Francis FENTANYL 10/05/2017 10:50:20 AM 25 mcg Dameon Owens 25 mcg FENTANYL given in lab by Dameon Owens RN in Left Antecubital via Peripheral IV. Ordered by Javan Tyler 1% XYLOCAINE 10/05/2017 10:50:29 AM 20 mL Javan Tyler 20 mL 1% XYLOCAINE given in lab by Javan Tyler in Right Radial via Subcutaneous. RADIAL COCKTAIL 10/05/2017 10:52:27 AM 5 mL (Bolus) Javan Tyler 5 mL (Bolus) RADIAL COCKTAIL given in lab by Javan Tyler in Right Radial via Radial. Using [S olution Name]. Reason: Ntg 200mcg Verapamil 2.5mg Heparin 4000U. Initial Case Assessment Cardiovascular HR Rhythm NIBP Chest Pain 82 SR 114/68 0 Skin color Skin Normal Warm Dry Circulatory - Right Pulses Dorsalis Pedis Femoral Radial 1 1 2 Scale (0,1,2,3,4,d) Scale (0,1,2,3,4,d) Neurological State Oriented to time-place- Alert Moves all extremities person Respiration - General Respiration Rate SpO2 (%) (B/min) 12 99 Chronological Log Time Study Chronological Log 10:20:09 Patient arrived via Bed. 10:22:13 Patient Name, D.O.B, / Armband Verified By R.N. 10:22:13 Consent signed by the physician and the patient and verified by the Photographic Laboratory Supervisor staff. 10:22:14 Pre-op and post- op instructions given; patient acknowledges understanding of instructions . 10:22:15 Verbal Stimulation=2 Physical Stimulation=2 Airway=2 Respiration=2 TOTAL=8. (0=absent, 1=l imited, 2=present) 10:22:17 Presedation assessment performed by Photographic Laboratory Supervisor RN. 10:22:19 Allens test performed on the right radial and ulnar artery. 10:22:23 Patient has been NPO for More than 6Hrs. 10:22:23 Skin Breakdown- none per pt 10:22:24 Patient Warmer Placed on the Table. 10:22:26 Chika Prominences Protected 10:22:27 A # 20 IV was noted in the Antecubital (left). Grade = 0 10:22:37 History and physical on the chart or being dictated. Assessment: Initial Case, HR=82 BPM, Rhythm=SR, SHAL=416/68 mmhg, Chest Pain=0, Color=Normal, Skin = Warm, Dry 10:22:38 Right Pulses: Titus Ped=1, Femoral=1, Radial=2 Neurological: State=Alert, Ox3, GARCIA Respiration: Resp=12 B/min, SpO2=99 % Vitals capture started with the following parameters, Patient=Adult, Interval=5 min, Initial P iefjhxy=259 mmHg, 10:30:32 Deflation Rate=5 mmHg, Cuff placed on Left Arm 10:30:40 Reference ECG taken 10:31:13 HR=82 bpm, AQPY=069/68 mmhg, SpO2=98.0 %, Resp=13 B/min 10:36:00 HR=80 bpm, DTSC=657/93 mmhg, SpO2=98.0 %, Resp=16 B/min 10:38:29 Bilateral groins and right radial prepped with 2% chlorhexidine, and draped after a 3 minut e waiting time. 10:41:03 HR=83 bpm, TWZG=694/97 mmhg, SpO2=99 %, Resp=18 B/min 10:43:49 MD paged 10:45:40 MD arrived. 10:46:06 HR=80 bpm, PBDI=765/93 mmhg, SpO2=97 %, Resp=18 B/min 10:47:36 Pressure channel 1 zeroed. Time Out. Correct patient, correct procedure, correct physician, power injector not loaded with contrast with surgical 10:49:17 team present. Time Out Concurred by MD and individual staff in procedure. 10:50:09 Case Start 10:50:10 0.5 mg VERSED given in lab by Dameon Owens, RN in Left Antecubital via Peripheral IV. Ord ered by Javan Tyler. 25 mcg FENTANYL given in lab by Dameon Owens, MAT in Left Antecubital via Peripheral IV. Order ed by Javan Tyler 10:50:20 G. 10:50:29 20 mL 1% XYLOCAINE given in lab by Javan Tyler in Right Radial via Subcutaneous. 10:51:05 HR=83 bpm, IVXG=178/90 mmhg, SpO2=97 %, Resp=19 B/min 10:51:37 Access site was Right Radial Artery. A SHEATH, FR6 TRANSRADIAL SLENDER 10CM FR 6 was advanced into the Radial (right) using the Perc utaneous 10:52:12 technique. 5 mL (Bolus) RADIAL COCKTAIL given in lab by Javan Tyler in Right Radial via Radial. Us ing [Solution Name]. 10:52:27 Reason: Ntg 200mcg Verapamil 2.5mg Heparin 4000U. A JR 4.0 INFINITI CATHETER FR 5 was advanced over a wire. OMNIPAQUE, 350 MG, 150ML 150ML was us ed for 10:53:14 injections. Recorded Pressure: LV, HR=92, Condition=Condition 1 10:55:31 (Left Ventricle) LV 104/3/6 Recorded Pressure: LV, Ao, HR=91, Condition=Condition 1 10:55:41 (Left Ventricle) LV 103/3/5, (Aorta) Ao 93/66/78 10:56:10 HR=90 bpm, NDSE=889/72 mmhg, SpO2=93 %, Resp=18 B/min 10:57:42 A WIRE, EXCHANGE 260CM 3MMJ 260CM was inserted via Radial (right). 10:58:58 Wire removed 10:59:46 The RCA was injected and visualized at various angles. OMNIPAQUE, 350 MG, 150ML 150ML used . After removing the current catheter a JL 3.5 DXTERITY CATHETER FR 5 was advanced over a WIRE, E XCHANGE 260CM 11:00:22 3MMJ 260CM. 11:00:26 NIBP STAT measurement started. 11:00:55 HR=83 bpm, KLUL=981/82 mmhg, SpO2=93 %, Resp=19 B/min 11:02:59 The LCA was injected and visualized at various angles. OMNIPAQUE, 350 MG, 150ML 150ML used . Recorded Pressure: Ao, HR=78, Condition=Condition 1 11:03:38 (Aorta) Ao 106/67/84 11:06:04 HR=81 bpm, CTHN=979/85 mmhg, SpO2=92 %, Resp=17 B/min 11:06:08 Catheter was removed 11:06:50 Case End Radial Compression Device Used. 9 mLs of air placed in BAND, RADIAL COMPRESSION TR SHORT 24 24C M. Affected 11:08:27 hand 98 % O2 saturation. 11:11:07 HG=466 bpm, VXSV=192/91 mmhg, XiB9=285.0 %, Resp=19 B/min 11:15:43 Vitals capture stopped. 11:15:50 No case complications noted. 11:15:53 Cine recording checked. 11:15:57 Bedside Report will be given. 11:16:04 A Left Heart Cath was performed. 11:16:06 [facility] End Study - Contrast Media Used In Study Contrast Total Opened (mL) Total Used (mL) Total Wasted (mL) Omnipaque 30 30 0 End Study - Maximum Contrast Load Max Contrast Load (mL) 754.9 End Study - Radiation Exposure Fluoro Time (minutes) 4.7 End Study - Sheaths Sheaths Pulled By Sheath Hold Time (min) Winter Mendoza End Study - Patient Disposition Complications Transferred To Telemetry Bed
--- NOTE | 2017-10-05 12:02 | MA ---
cc: Javan Tyler DO 10/05/2017 PROCEDURE: Left heart catheterization, coronary angiogram, moderate sedation, 16 minutes. PREPROCEDURE DIAGNOSIS: Abnormal stress test, preoperative cardiovascular evaluation. POSTPROCEDURE DIAGNOSIS: Mild coronary artery disease, tortuous vessels secondary to hypertension. MEDICATIONS: Versed 0.5 mg, fentanyl 25 mcg, verapamil 2.5 mg, nitroglycerin 200 mcg, heparin 4000 units. CONTRAST USED: 30 mL. FLUOROSCOPY: 4.7 minutes. MODERATE SEDATION: 16 minutes. ESTIMATED BLOOD LOSS: 10 mL. PROCEDURAL SUMMARY: Krissy eLal is a pleasant 67-year-old female who sees my partner, Dr. Carbajal, in the office and was planning to undergo bariatric surgery. She underwent stress testing and there was a concern for anterior ischemia and so she was recommended cardiac catheterization. Risks, benefits, and alternatives were explained to her and she consented as such. She was brought to the lab and prepped in the usual sterile fashion. Right radial artery was accessed using a modified Seldinger technique and placement of a 5/6-American Slender sheath. This was easily aspirated and flushed. A JR4 was advanced over a J-wire to the ascending aorta and across the aortic valve for measurement of left ventricular pressure. This was pulled back across the aortic valve, showing no significant gradient of aortic stenosis. JR4 was exchanged for a JL3.5, which was used for selective angiography of the left coronary artery system. JL3.5 was removed over a J-wire. Radial band was placed over the arteriotomy site for hemostasis. Patient left the director of cath lab cardiovascularly stable. FINDINGS: 1. LEFT MAIN: Normal size vessel with adequate reflux. It trifurcates into an LAD, ramus, and circumflex. 2. LEFT ANTERIOR DESCENDING: Normal size vessel with overall tortuosity throughout the mid to distal portion with diffuse 20% disease. Distally, the vessel tapers down to the apex. 3. RAMUS: Large vessel with tortuosity throughout. It supplies the true apex over the LAD. No significant disease. 4. LEFT CIRCUMFLEX: Normal size vessel with 10% disease in the proximal portion. It gives off 2 obtuse marginals with the first one being large and no significant disease and the second one being overall small. Overall, it has significant tortuosity throughout. 5. RIGHT CORONARY ARTERY: Normal size vessel with no significant disease. Distally, it supples a PDA and a PLB with no significant disease. LVEDP 5. IMPRESSIONS: 1. Mild coronary artery disease by cardiac catheterization. 2. Preoperative cardiovascular risk assessment. 3. Tortuous coronary vessels secondary to hypertension. RECOMMENDATIONS: 1. Ms. Leal appears to have mild coronary artery disease as above and she will be recommended continued medical management. 2. 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 3. She will follow up with Dr. Carbajal for final risk assessment before surgery. Thank you for allowing me to see Krissy Leal. If there are any questions, please do not hesitate to call. Javan Tyler DO VGP/TI , 11:20 AM , 12:00 PM
--- NOTE | 2017-10-05 21:58 | EKG ---
Date Performed: 10/05/2017 Time Performed: 07:38:10 PTAGE: 67 years EKG: Sinus rhythm . Possible left anterior fascicular block Borderline ECG PREVIOUS TRACING : 04/26/2017 06.43 Since the prior tracing, there has been no significant sanchez DOCTOR: Aubrie Penn Interpretating Date/Time 10/05/2017 21:56:41
== END 2017-10-05 14:07 | disposition home or self-care (01) ==
LOC: HDIC 06:49 → HDOC 06:49
PROVIDERS: ATTEND Nuclear Medicine Nuclear Cardiology
DX: I25.10 Atherosclerotic heart disease of native coronary artery without angina pectoris (principal); I10 Essential (primary) hypertension; R06.02 Shortness of breath; K21.9 Gastro-esophageal reflux disease without esophagitis; E78.5 Hyperlipidemia, unspecified; Z01.818 Encounter for other preprocedural examination
CPT/HCPCS: 80048; 85025; 85610; 85730; 93005; 93458; 99152; C1769; C1893; J1644; J2250; J3010; Q9967

== ENCOUNTER 2017-11-08 05:16 | Inpatient (IN) | payer MEDICARE ==
[~2017-11-08] VITALS: Ht 160 cm; Wt 101.6 kg
[~2017-11-08 05:16] MED LIST changes: -ADJUSTABLE COMM1 MIS; -APIX2.5T PO; +CHOL10008 PO; -CPMMACHINE; -D200CAP PO; -HYDR-3580 PO; -WALKER WHEELS/F1 MIS
[2017-11-08] MEDS ORDERED: SODIUM CHLORID 0.9% 500 ML IV PRN (05:45)
[2017-11-08] MEDS ORDERED: METOPROLOL TARTRATE 25 MG TAB PO PRN (05:45)
[2017-11-08] MEDS ORDERED: SCOPOLAMINE 1.5 MG PATCH T-DERMAL SCH (05:45)
[2017-11-08] MEDS ORDERED: ONDANSETRON HCL 4 MG/2 ML VIAL IV PUSH SCH (05:45)
[2017-11-08] MEDS ORDERED: metroNIDAZOLE 500 MG INJ 100 ML IV SCH (05:45)
[2017-11-08] MEDS ORDERED: LACTATED RINGER'S 1000 ML IV PRN (05:45)
[2017-11-08] MEDS ORDERED: CHLORHEXIDINE GLUCONATE 2 % 1 PACK (2 CLOTHS) TOPICAL PRN (05:45)
[2017-11-08] MEDS ORDERED: VANCOMYCIN 1,000 MG/NS 250ML (for <70 kg) IV SCH ×2 (05:45)
[2017-11-08] MEDS ORDERED: APREPITANT 40 MG CAP PO SCH (05:45)
[2017-11-08] MEDS ORDERED: ACETAMINOPHEN 1000 MG/100 ML 100 ML IV SCH (05:45)
[2017-11-08] MEDS ORDERED: POVIDONE IODINE 5% (ANTISEPSIS KIT) 4 APPLICATIONS EACH NARE PRN (05:45)
[2017-11-08] MEDS ORDERED: HYDROmorphone HCL PF 2 MG/ML VIAL ONE (06:33)
[2017-11-08] MEDS ORDERED: DEXMEDETOMIDINE HCL 200 MCG/2 ML VIAL ONE (06:33)
[2017-11-08] MEDS ORDERED: KETAMINE HCL 500 MG/5 ML VIAL ONE (06:34)
[2017-11-08] MEDS ORDERED: MIDAZOLAM HCL 2 MG/2 ML VIAL ONE (06:34)
[2017-11-08] MEDS ORDERED: LIDOCAINE HCL 2% 20 ML VIAL ONE (06:36)
[2017-11-08] MEDS ORDERED: BUPIVACAINE/EPINEPHRINE 0.25% PF 10 ML VIAL ONE (07:08)
[2017-11-08] MEDS ORDERED: METHYLENE BLUE 10 MG/ML VIAL ONE (07:08)
--- NOTE | 2017-11-08 07:19 | HHI.PR ---
Immediate Post Op Note Procedure Date: Nov 08, 2017 Pre Op Diagnosis: morbid obesity bmi 40 HTN, Hypercholestremia, gerd Post Op Diagnosis: same Surgeon: Omar Varela MD Turbine Operator(s): dina Procedure: lap sleeve over 36 f visigi bougi Findings: no leak Complications: none Specimen(s) removed: none Estimated blood loss: 5cc Anesthesia: General Drains: None Patient to: PACU Patient Condition: Good Omar Varela MD Nov 08, 2017 07:19
[2017-11-08] MEDS ORDERED: HYDROmorphone HCL PCA 6 MG/30 ML IV SCH (07:30)
[2017-11-08] MEDS ORDERED: diphenhydrAMINE HCL 50 MG/ML VIAL IV PUSH PRN (07:30)
[2017-11-08] MEDS ORDERED: diphenhydrAMINE HCL ELIXIR 12.5 MG/5 ML CUP PO PRN (07:30)
[2017-11-08] MEDS ORDERED: NALOXONE HCL 0.4 MG/ML AMP IV PUSH PRN (07:30)
[2017-11-08] MEDS ORDERED: SODIUM CHLORIDE 0.9% FLUSH 10 ML FLUSH IV FLUSH PRN (07:30)
[2017-11-08] MEDS ORDERED: ENALAPRILAT 1.25 MG/ML VIAL IV PUSH PRN (07:30)
[2017-11-08] MEDS ORDERED: ACETAMINOPHEN 325MG/HYDROcodone 7.5MG/15ML UDC PO PRN (07:30)
[2017-11-08] MEDS ORDERED: Post-op Orders (for Pharmacy) OTHER ONE (07:30)
[2017-11-08] MEDS ORDERED: BUPIVACAINE/EPINEPHRINE 0.25% 50 ML VIAL ONE (07:31)
[2017-11-08] MEDS: SODIUM CHLORIDE 0.9% FLUSH 10 ML FLUSH IV FLUSH SCH ×2 (09:00→21:41)
[2017-11-08] MEDS ORDERED: DO NOT ADM ANY ANTICOAGULANT DRUGS PRN (09:04)
[2017-11-08] MEDS: D5-1/2 NS + KCL 20 MEQ INJ 1,000 ML IV SCH ×2 (09:40→17:03)
[2017-11-08] MEDS: METOCLOPRAMIDE HCL 10 MG/2 ML VIAL IV PUSH SCH ×3 (09:48→21:41)
[2017-11-08] MEDS: PANTOPRAZOLE SOD 40 MG DELAYED RELEASE TAB PO SCH (10:00)
[2017-11-08] MEDS: ONDANSETRON HCL 4 MG/2 ML VIAL IV PUSH PRN (11:58)
[2017-11-08] MEDS ORDERED: ROCURONIUM INJ 50 MG/5 ML SYRINGE IV PUSH ONE (12:00)
[2017-11-08] MEDS ORDERED: ePHEDrine/NS 25 MG/5 ML SYRINGE IV ONE (12:00)
[2017-11-08] MEDS ORDERED: NEOSTIGMINE 5 MG/5 ML SYRINGE IV PUSH ONE (12:00)
[2017-11-08] MEDS: ACETAMINOPHEN 1000 MG/100 ML 100 ML IV SCH ×3 (12:00→23:18)
[2017-11-08] MEDS ORDERED: PROPOFOL 200 MG/20 ML AMP IV ONE (12:00)
[2017-11-08] MEDS ORDERED: LIDOCAINE HCL 1% PF 5 ML SYRINGE OTHER ONE (12:00)
[2017-11-08] MEDS ORDERED: SODIUM CHLOR 0.9% 250 ML INJ 500 ML IV ONE (12:00)
[2017-11-08] MEDS ORDERED: DEXAMETHASONE SOD PHOS 4 MG/ML VIAL IV ONE (12:00)
[2017-11-08] MEDS ORDERED: PHENYLEPH/NS 1000 MCG/10 ML SYR IV ONE (12:00)
[2017-11-08] MEDS: ENOXAPARIN SODIUM 40 MG/0.4 ML SYRINGE SQ SCH (13:15)
[2017-11-08 16:00] VITALS: BP 124/64; PULSE 62; RESP 18; TEMP 97.2; O2SAT 97
--- NOTE | 2017-11-08 17:05 | MP ---
cc: Omar Varela MD DATE OF OPERATION: 11/08/2017 DATE OF PROCEDURE: 11/08/2017 PREOPERATIVE DIAGNOSES: 1. Morbid obesity, body mass index of 40 mg. 2. Hypertension, hypercholesteremia, reflux. POSTOPERATIVE DIAGNOSES: 1. Morbid obesity, body mass index of 40 mg. 2. Hypertension, hypercholesteremia, reflux. PROCEDURE PERFORMED: Laparoscopic sleeve gastrectomy over a 36 ViSiGI bougie. SURGEON: Dr. Omar Varela STOKER ERECTOR AND SERVICER: Tasha. ANESTHESIA: GETA. IV FLUIDS: See anesthesia sheet. ESTIMATED BLOOD LOSS: 5 mL. DRAINS: None. COMPLICATIONS: None. WOUND CLASSIFICATION: Clean/contaminated. FINDINGS: No leak with methylene blue. INDICATIONS: The patient is a 67-year-old female who presents with morbid obesity, multiple attempts at weight loss without success. The patient with a BMI of over 40 and comorbidities of hypertension, hypercholesterolemia and reflux. Decision was made for a laparoscopic sleeve gastrectomy. DETAILS OF PROCEDURE: The patient was taken to the operating suite, placed in supine position. She was prepped and draped in the usual sterile fashion after induction of general endotracheal anesthesia. Brief timeout was done stating the correct patient, procedure, surgical site and we were all in agreement with this. Attention was first directed to 15 cm distal to the xiphoid that the midline. Local anesthetic injected. Stab/omar incision was made with an 11 blade. A 5 mm Optiview scope was entered into the abdomen safely. A pneumoperitoneum to 15 mm pneumoperitoneum. Under direct visualization, no evidence of injury. Several accessory ports were placed after the patient was placed in reverse Trendelenburg and airplaned to the left. A right upper quadrant 5 mm port was placed for liver retraction. A right lower quadrant 15 mm port was placed, a 5 mm left upper quadrant and a 5 mm left lower quadrant port were also placed. The stomach was identified. The vasculature on the greater curve of the stomach was using harmonic scalpel, 5 cm proximal pylorus, carried all the way to the angle of His. Angle of His was taken down bluntly. Posterior ligaments and attachments were sharply . The 36-Ugandan ViSiGi bougie was advanced and placed to suction. Division of the stomach was done over this with a calibration device. This was done 5 cm proximal to the pylorus toward the angle of His, removing approximately 80% of the stomach. This was done with the Endo-BECKI stapler, initial black load, followed by green load and gold loads. All loads were reinforced with SeamGuard. This was done at distal 2 cm left of the angle incisura and 1 cm left of the GE junction staple line. The staple line was then tested with methylene blue. Two syringes of 60 mL each were instilled without evidence of leaking. The posterior ligamentous adhesions were somewhat intact to the medial portion. Next, Evicel was placed around the suture line. Small bleeding point distal staple line where 5 mm clips were placed on the distal staple line. The excised stomach was removed through the right lower quadrant 15 mm port site. The fascia was closed using an endo-stitch of 2-0 Vicryl and suture passer. Pneumoperitoneum was removed. All ports were removed, 4-0 Monocryl used for subcuticular suture at all port sites. The patient tolerated the procedure well. There was no intraoperative complications. All lap and instrument counts were correct at the end of the procedure. The patient was extubated and taken in stable to the PACU. MD SHAGGY Hernandez/DELMAR , 04:41 PM , 05:04 PM
[2017-11-08] MEDS: VANCOMYCIN INJ 1,000 MG in SODIUM CHLOR 0.9% 250 ML INJ 250 ML IV SCH (18:37)
[2017-11-08 20:00] VITALS: BP 128/64; PULSE 62; RESP 16; TEMP 96.2; O2SAT 98
[2017-11-08] MEDS: PCA - TOTAL MG DILAUDID DELIVERED PER SHIFT OTHER SCH (22:00)
[2017-11-08 22:20] VITALS: O2SAT 98
[2017-11-09] VITALS: BP 141/74; PULSE 63; RESP 16; TEMP 97.3; O2SAT 99
[2017-11-09 04:00] VITALS: BP 113/56; PULSE 57; RESP 16; TEMP 97.9; O2SAT 98
[2017-11-09 04:32] LABS: AUTOMATED NEUTROPHIL # 16.1 TH/MM3 (1.8-7.7); BASOPHIL # 0.1 TH/MM3 (0-0.2); BASOPHIL % 0.3 % (0.0-2.0); EOSINOPHIL % 0.1 % (0.0-4.0); HEMATOCRIT 42.6 % (35.0-46.0); HEMOGLOBIN 14.3 GM/DL (11.6-15.3); LYMPH % 7.4 % (9.0-44.0); LYMPHOCYTE # 1.4 TH/MM3 (1.0-4.8); MEAN CELL VOLUME 85.6 FL (80.0-100.0); MEAN CORPUSCULAR HEMOGLOBIN 28.7 PG (27.0-34.0); MEAN CORPUSCULAR HGB CONC 33.5 % (32.0-36.0); MEAN PLATELET VOLUME 8.7 FL (7.0-11.0); MONO % 6.1 % (0.0-8.0); MONOCYTE # 1.1 TH/MM3 (0-0.9); NEUT % 86.1 % (16.0-70.0); PLATELET COUNT 314 TH/MM3 (150-450); RED BLOOD COUNT 4.97 MIL/MM3 (4.00-5.30); RED CELL DISTRIBUTION WIDTH 13.6 % (11.6-17.2); WHITE BLOOD COUNT 18.7 TH/MM3 (4.0-11.0)
[2017-11-09] MEDS: METOCLOPRAMIDE HCL 10 MG/2 ML VIAL IV PUSH SCH ×3 (04:33→19:59)
[2017-11-09] MEDS: D5-1/2 NS + KCL 20 MEQ INJ 1,000 ML IV SCH ×3 (04:34→19:59)
[2017-11-09] MEDS: ACETAMINOPHEN 1000 MG/100 ML 100 ML IV SCH (04:34)
[2017-11-09] MEDS: LEVOTHYROXINE SODIUM 75 MCG TAB PO SCH (04:34)
[2017-11-09] MEDS: PCA - TOTAL MG DILAUDID DELIVERED PER SHIFT OTHER SCH (04:35)
[2017-11-09 04:47] LABS: BICARBONATE 22.4 MEQ/L (21.0-32.0); CALCIUM 8.9 MG/DL (8.5-10.1); CREATININE 0.73 MG/DL (0.50-1.00); MAGNESIUM 2.4 MG/DL (1.5-2.5)
[2017-11-09] MEDS: SODIUM CHLORIDE 0.9% FLUSH 10 ML FLUSH IV FLUSH SCH ×2 (07:21→19:59)
[2017-11-09] MEDS: VANCOMYCIN INJ 1,000 MG in SODIUM CHLOR 0.9% 250 ML INJ 250 ML IV SCH (07:26)
[2017-11-09] MEDS ORDERED: METOCLOPRAMIDE HCL 10 MG/2 ML VIAL IV PUSH PRN (07:30)
[2017-11-09 08:00] VITALS: BP 126/60; PULSE 62; RESP 18; TEMP 97.4; O2SAT 99
[2017-11-09] MEDS: PANTOPRAZOLE SOD 40 MG DELAYED RELEASE TAB PO SCH (08:19)
[2017-11-09] MEDS: ONDANSETRON HCL 4 MG/2 ML VIAL IV PUSH PRN (08:22)
[2017-11-09] MEDS ORDERED: DEXAMETHASONE SOD PHOS 20 MG/5 ML VIAL IV PUSH ONE (09:45)
[2017-11-09] MEDS ORDERED: OXYMETAZOLINE HCL 0.05% 15 ML NASAL SPRAY NASAL PRN (09:45)
[2017-11-09] MEDS: LISINOPRIL 10 MG TAB PO SCH (10:00)
[2017-11-09] MEDS: PANTOPRAZOLE SODIUM 40 MG VIAL IV PUSH SCH ×2 (11:42→19:58)
[2017-11-09 12:00] VITALS: BP 112/64; PULSE 66; RESP 18; TEMP 97.5; O2SAT 98
[2017-11-09] MEDS ORDERED: DEXAMETHASONE SOD PHOS 20 MG/5 ML VIAL IM ONE (12:00)
[2017-11-09] MEDS: ENOXAPARIN SODIUM 40 MG/0.4 ML SYRINGE SQ SCH (13:45)
[2017-11-09] MEDS: SUCRALFATE 1 GM/10 ML CUP PO SCH ×3 (13:45→19:58)
--- NOTE | 2017-11-09 13:50 | HHI.PR ---
Subjective Subjective Notes Having a lot of nausea, going slow with fluids Objective Vitals/I&O Vital Signs Date Time Temp Pulse Resp B/P (MAP) Pulse Ox O2 Delivery O2 Flow Rate FiO2 11/09/17 12:00 97.5 66 18 112/64 (80) 98 11/08/17 22:20 21 11/08/17 14:00 Nasal Cannula 2 Labs Laboratory Tests Test 11/09/17 03:39 White Blood Count 18.7 Red Blood Count 4.97 Hemoglobin 14.3 Hematocrit 42.6 Mean Corpuscular Volume 85.6 Mean Corpuscular Hemoglobin 28.7 Mean Corpuscular Hemoglobin Concent 33.5 Red Cell Distribution Width 13.6 Platelet Count 314 Mean Platelet Volume 8.7 Neutrophils (%) (Auto) 86.1 Lymphocytes (%) (Auto) 7.4 Monocytes (%) (Auto) 6.1 Eosinophils (%) (Auto) 0.1 Basophils (%) (Auto) 0.3 Neutrophils # (Auto) 16.1 Lymphocytes # (Auto) 1.4 Monocytes # (Auto) 1.1 Eosinophils # (Auto) 0.0 Basophils # (Auto) 0.1 CBC Comment DIFF FINAL Differential Comment Blood Urea Nitrogen 17 Creatinine 0.73 Random Glucose 135 Calcium Level 8.9 Magnesium Level 2.4 Sodium Level 134 Potassium Level 5.1 Chloride Level 103 Carbon Dioxide Level 22.4 Anion Gap 9 Estimat Glomerular Filtration Rate 80 Cardiovascular: Regular Lungs: Clear Abdomen: Post-op tenderness Extremities: Perfused, SCD's on Wound Wound : Wound Location: Abdomen Appearance: Clean & Dry A/P Assessment and Plan 67yo F POD#1 laparoscopic VSG -Decadron given for nausea, change metoclopramide to scheduled Q6 and add promethazine PRN along with ondansetron -Transition to oral pain control, D/C METAL FENCE ERECTOR -Abdominal binder for comfort -Continue with frequent ambulation -Continue to increase fluids as tolerated Discharge Planning Depending on hospital course either this evening or tomorrow Attending Statement patient seen at bedside adjust nausea meds encourage po liquids as tolerated keep one more day dvt ppx Attestation The exam, history, and the medical decision-making described in the above note were completed with the assistance of the mid-level provider. I reviewed and agree with the findings presented. I attest that I had a [id number] encounter with the patient on the same day, and personally performed and documented my assessment and findings in the medical record. Barrera Charles Nov 09, 2017 13:50 Omar Varela MD Nov 11, 2017 11:24
[2017-11-09 16:00] VITALS: BP 133/76; PULSE 72; RESP 18; TEMP 97.6; O2SAT 97
[2017-11-09 20:00] VITALS: BP 130/85; PULSE 80; RESP 19; TEMP 98; O2SAT 97
[2017-11-09] MEDS: ACETAMINOPHEN 325MG/HYDROcodone 7.5MG/15ML UDC PO PRN (20:08)
[2017-11-10] VITALS: BP 152/73; PULSE 82; RESP 17; TEMP 98.3; O2SAT 99
[2017-11-10] MEDS: METOCLOPRAMIDE HCL 10 MG/2 ML VIAL IV PUSH SCH ×3 (02:26→13:46)
[2017-11-10] MEDS: LEVOTHYROXINE SODIUM 75 MCG TAB PO SCH (06:27)
[2017-11-10 08:00] VITALS: BP 150/83; PULSE 107; RESP 19; TEMP 97.9; O2SAT 96
[2017-11-10] MEDS: SUCRALFATE 1 GM/10 ML CUP PO SCH ×2 (08:00→12:00)
[2017-11-10] MEDS: SODIUM CHLORIDE 0.9% FLUSH 10 ML FLUSH IV FLUSH SCH (09:15)
[2017-11-10] MEDS: LISINOPRIL 10 MG TAB PO SCH (09:15)
[2017-11-10] MEDS: PANTOPRAZOLE SODIUM 40 MG VIAL IV PUSH SCH (09:16)
[2017-11-10 12:00] VITALS: BP 156/80; PULSE 102; RESP 19; TEMP 98.3; O2SAT 97
[2017-11-10] MEDS: ACETAMINOPHEN 325MG/HYDROcodone 7.5MG/15ML UDC PO PRN (12:02)
[2017-11-10] MEDS ORDERED: diphenhydrAMINE HCL 50 MG/ML VIAL IV PUSH ONE (13:00)
[2017-11-10] MEDS: D5-1/2 NS + KCL 20 MEQ INJ 1,000 ML IV SCH (13:03)
--- NOTE | 2017-11-10 13:03 | HHI.PR ---
Subjective Subjective Notes Feeling better with nausea, tolerating PO intake. Reports a small BM today. Overnight had a large erythematic skin eruption on face, upper arms, and chest, was given PO Benadryl Objective Vitals/I&O Vital Signs Date Time Temp Pulse Resp B/P (MAP) Pulse Ox O2 Delivery O2 Flow Rate FiO2 11/10/17 08:00 97.9 107 19 150/83 (105) 96 11/08/17 22:20 21 11/08/17 14:00 Nasal Cannula 2 Cardiovascular: Regular Lungs: Clear Abdomen: Post-op tenderness Extremities: Perfused Wound Wound : Wound Location: Abdomen Appearance: Clean & Dry A/P Assessment and Plan 67yo F POD#2 laparoscopic VSG -Skin eruption most likely from the Decadron. Will give another 50mg Benadryl IV -Will get CBC and BMP, if wnl pt can d/c home -Continue with frequent ambulation -Continue to increase fluids as tolerated Discharge Planning d/c home most likely this evening Attending Statement patient seen at bedside doing better developed redness from vanc or possibly decadron continue to monitor d/c planning Attestation The exam, history, and the medical decision-making described in the above note were completed with the assistance of the mid-level provider. I reviewed and agree with the findings presented. I attest that I had a [id number] encounter with the patient on the same day, and personally performed and documented my assessment and findings in the medical record. Barrera Charles Nov 10, 2017 13:03 Omar Varela MD Nov 14, 2017 21:32
[2017-11-10 13:12] LABS: AUTOMATED NEUTROPHIL # 12.6 TH/MM3 (1.8-7.7); BASOPHIL % 0.2 % (0.0-2.0); EOSINOPHIL % 0.1 % (0.0-4.0); HEMATOCRIT 40.6 % (35.0-46.0); HEMOGLOBIN 13.7 GM/DL (11.6-15.3); LYMPH % 12.4 % (9.0-44.0); LYMPHOCYTE # 1.9 TH/MM3 (1.0-4.8); MEAN CELL VOLUME 83.6 FL (80.0-100.0); MEAN CORPUSCULAR HEMOGLOBIN 28.3 PG (27.0-34.0); MEAN CORPUSCULAR HGB CONC 33.9 % (32.0-36.0); MEAN PLATELET VOLUME 8.2 FL (7.0-11.0); MONO % 6.4 % (0.0-8.0); NEUT % 80.9 % (16.0-70.0); PLATELET COUNT 371 TH/MM3 (150-450); RED BLOOD COUNT 4.85 MIL/MM3 (4.00-5.30); RED CELL DISTRIBUTION WIDTH 13.4 % (11.6-17.2); WHITE BLOOD COUNT 15.5 TH/MM3 (4.0-11.0)
[2017-11-10] MEDS: ENOXAPARIN SODIUM 40 MG/0.4 ML SYRINGE SQ SCH (13:46)
[2017-11-10 13:53] LABS: BICARBONATE 22.7 MEQ/L (21.0-32.0); CALCIUM 9.1 MG/DL (8.5-10.1); CREATININE 0.75 MG/DL (0.50-1.00)
== END 2017-11-10 16:12 | disposition home or self-care (01) | DRG 621 ==
LOC: HSDC 05:16 → HSDI 07:21 → EDSTATUS 07:30 → N07A 14:56
PROVIDERS: ADMIT Surgery; ATTEND Surgery
PROC: 0DB64Z3 Excision of Stomach, Percutaneous Endoscopic Approach, Vertical (ICD-10-PCS; principal; 2017-11-08 07:24)
DX: E66.01 Morbid (severe) obesity due to excess calories (principal); I10 Essential (primary) hypertension; Z68.41 Body mass index [BMI] 40.0-44.9, adult; E78.00 Pure hypercholesterolemia, unspecified; K21.9 Gastro-esophageal reflux disease without esophagitis; E03.9 Hypothyroidism, unspecified; R21 Rash and other nonspecific skin eruption; R11.0 Nausea; Z86.718 Personal history of other venous thrombosis and embolism
CPT/HCPCS: 76937; 80048; 83735; 85025; 94150; C9113; J0131; J1100; J1170; J1200; J1650; J2250; J2370; J2405; J2710; J2765; J3010; J3370; J3480; J7050; J7120